=== PATIENT | male | born 1955 | race Caucasian/White ===

== ENCOUNTER 2018-03-28 11:55 | Emergency (ER) | payer OTHER ==
[~2018-03-28] VITALS: Ht 180.3 cm; Wt 99.8 kg
[2018-03-28] MEDS ORDERED: NOHOMEMEDICATIONS (12:06)
[2018-03-28 13:56] VITALS: BP 142/89
== END 2018-03-28 13:58 | disposition home or self-care (01) ==
LOC: M.ERS 11:55
DX: M25.561 Pain in right knee (principal)